=== PATIENT | male | born 1960 | race Caucasian/White ===

== ENCOUNTER 2017-08-09 15:15 | Outpatient (CLI) | payer OTHER ==
--- NOTE | 2017-08-09 17:36 | RAD ---
TWO VEIWS CHEST: History: Cough and fever for five days. FINDINGS: Two views of the chest shows normal sized cardiomediastinal silhouette. There is no evidence of conso lidation, mass, or pleural effusion. Biapical pleural thickening and increased interstitial markings are present. IMPRESSION: No evidence of acute cardiopulmonary disease. POS: [facility]
== END 2017-08-09 15:16 | disposition home or self-care (01) ==
LOC: SCSRAD 15:15
PROVIDERS: ATTEND Family Medicine
DX: J40 Bronchitis, not specified as acute or chronic (principal)
CPT/HCPCS: 71046

== ENCOUNTER 2018-05-18 05:53 | Day surgery (SDC) | payer OTHER ==
[2018-05-17 12:43] VITALS: BMI 28.2
[~2018-05-18 05:53] MED LIST: Fluorouracil 100 MG, Enoxaparin Sodium 25 MG, EPINEPHrine 0.3 MG in Ophthalmic Irrigati... FS SCH
[2018-05-18] MEDS ORDERED: Cyclopentolate 1% Opth Drop 2 ML BOT ONE (06:16)
[2018-05-18] MEDS ORDERED: Phenylephrine 2.5% Ophth Soln 5 ML BOT ONE (06:16)
[2018-05-18] MEDS ORDERED: Midazolam HCl 2 mg/2 ml Vial ONE ×2 (06:31→06:46)
[2018-05-18] MEDS ORDERED: Fentanyl 100 MCG/2 ML VIAL ONE (06:31)
[2018-05-18] MEDS ORDERED: PROPOFOL 20 ML ONE (06:31)
[2018-05-18] MEDS ORDERED: PROPOFOL 60 ML ONE (06:51)
--- NOTE | 2018-05-18 10:53 | OP ---
DATE OF PROCEDURE: 05/18/2018 PREOPERATIVE DIAGNOSIS: Rhegmatogenous retinal detachment, right eye. POSTOPERATIVE DIAGNOSIS: Rhegmatogenous retinal detachment, right eye. PROCEDURES PERFORMED: Pars plana vitrectomy, retinal patch repair, right eye. ANESTHESIA: General endotracheal anesthesia. COMPLICATIONS: None. PROCEDURE IN DETAIL: The patient was identified in the preoperative holding area. Appropriate informed consent for the planned surgical procedure on the right eye had been obtained. The patient was transported to the operative suite. Appropriate cardiopulmonary monitoring was established. General endotracheal anesthesia was initiated. Local anesthesia was obtained with retrobulbar block. The patient was prepped and draped in usual sterile manner for ophthalmic surgery on the right eye. A lid speculum was placed in the right eye. A 25-gauge trocar was placed through the conjunctiva and sclera superotemporally, inferotemporally, and supranasally. Infusion line was placed inferotemporally. Light pipe vitreous cutter was inserted into the eye. Core vitrectomy was performed. Attention was turned to the breaks at the 10 o'clock and 12 o'clock and 2 o'clock. Vitreous was trimmed back from the breaks. Posterior drained retinotomy was created along the 8 o'clock meridian along its infratemporal arcade. A 360 laser was placed using Endolaser delivery device. Complete air-fluid exchange was performed with 10 minutes being left for fluid to drain posteriorly. A 28% sulfur hexafluoride gas was infused into the eye. Trocars were removed. Superior sclerotomy was suture closed. Retrobulbar Kenalog and subconjunctival Ancef were placed. Atropine antibiotic ointment was placed and the eye was patched and shielded. The patient was taken to postoperative recovery unit in good condition, having suffered no immediate perioperative complications. The patient was advised to keep the patch and shield on, avoid lifting or bending, position right side down. Followup in the morning with Dr. Gonzalez. Job ID: [id number]
[2018-05-18] MEDS ORDERED: Lidocaine 4% PF 5 ML AMP ONE (13:36)
[2018-05-18] MEDS ORDERED: CEFAZOLIN 1 GM VIAL ONE (13:36)
[2018-05-18] MEDS ORDERED: Ondansetron PF 4 MG/2 ML Vial ONE (13:36)
[2018-05-18] MEDS ORDERED: Maxitrol 0.1% Opth Oint 3.5 GM TUBE ONE (13:36)
[2018-05-18] MEDS ORDERED: Triamcinolone 40 MG/ML VIAL ONE (13:36)
[2018-05-18] MEDS ORDERED: PROPOFOL 200 MG/20 ML VIAL ONE (13:36)
[2018-05-18] MEDS ORDERED: Dexamethasone 20 MG/5 ML VIAL ONE (13:36)
[2018-05-18] MEDS ORDERED: Bupivacaine 0.75% 10 ML AMP ONE (13:36)
[2018-05-18] MEDS ORDERED: Lidocaine 1% PF 5 ML VIAL ONE ×2 (13:36)
== END 2018-05-18 10:09 | disposition home or self-care (01) ==
LOC: SDC 05:53
PROVIDERS: ATTEND Ophthalmology Retina Specialist
PROC: 08B43ZZ Excision of Right Vitreous, Percutaneous Approach (ICD-10-PCS; principal; 2018-05-18)
DX: H33.021 Retinal detachment with multiple breaks, right eye (principal)
CPT/HCPCS: 67025; J0171; J0690; J1100; J1650; J2001; J2250; J2405; J2704; J3010; J3301; J3490; J9190

== ENCOUNTER 2020-01-10 09:31 | Outpatient (CLI) | payer OTHER | END 2020-01-10 09:32 | disposition home or self-care (01) | LOC: DTY/OP 09:31 | PROVIDERS: ATTEND Family Medicine | DX: E11.9 Type 2 diabetes mellitus without complications (principal) | CPT/HCPCS: 97802 ==